=== PATIENT | male | born 1945 | race Caucasian/White ===

== ENCOUNTER 2016-04-21 06:48 | Emergency (ER) | payer OTHER ==
--- NOTE | 2016-04-21 07:03 | CPEKG ---
Heart Rate: 69 RR Interval: 870 P-R Interval: 164 QRSD Interval: 90 QT Interval: 384 QTC Interval: 412 P Leon: 3 QRS Leon: 61 T Wave Leon: 32 EKG Severity - OTHERWISE NORMAL ECG - EKG Impression: SINUS RHYTHM EKG Impression: VENTRICULAR PREMATURE COMPLEX EKG Impression: Similar to previous Electronically Signed By: Kevin Almazan 21-Apr-2016 07:05:19
[2016-04-21] MEDS ORDERED: MECLIZINE HCL 25 MG TAB PO ONE (07:12)
--- NOTE | 2016-04-21 07:18 | EDPHY ---
H & P Stated Complaint: vertigo and nausea Time Seen by Provider: 04/21/16 07:03 HPI/ROS: CHIEF COMPLAINT: Vertigo HISTORY OF PRESENT ILLNESS: Patient is a 70-year-old man with a history of hypertension and diabetes who comes to the emergency department complaining of vertigo. He states that he rolled over and his bed last night at 4:00 a.m. and had sudden vertigo. It resolved and he is able to go back to sleep. It happened again at 6:00 a.m. this morning when he was getting up. It is worsened by head movement or position. It does tend to resolve if he holds his head still. He states that now it is feeling much better. He did vomit once. He denies chest pain or shortness of breath. No abdominal pain. He has never had these symptoms before. REVIEW OF SYSTEMS: Constitutional: denies: chills, fever, recent illness, recent injury EENTM: denies: blurred vision, double vision, nose congestion Respiratory: denies: cough, shortness of breath Cardiac: denies: chest pain, irregular heart rate, lightheadedness, palpitations Gastrointestinal/Abdominal: denies: abdominal pain, diarrhea, blood streaked stools Genitourinary: denies: dysuria, frequency, hematuria, pain Musculoskeletal: denies: joint pain, muscle pain Skin: denies: lesions, rash, jaundice, bruising Neurological: Vertigo, denies: headache, numbness, paresthesia, tingling, weakness Hematologic/Lymphatic: denies: blood clots, easy bleeding, easy bruising Immunologic/allergic: denies: HIV/AIDS, transplant EXAM: GENERAL: Well-appearing, well-nourished and in no acute distress. HEAD: Atraumatic, normocephalic. EYES: Nystagmus primarily with looking to the right. Pupils equal round and reactive to light, extraocular movements intact, sclera anicteric, conjunctiva are normal. ENT: TMs normal, nares patent, oropharynx clear without exudates. Moist mucous membranes. NECK: Normal range of motion, supple without lymphadenopathy or JVD. LUNGS: Breath sounds clear to auscultation bilaterally and equal. No wheezes rales or rhonchi. HEART: Regular rate and rhythm without murmurs, rubs or gallops. ABDOMEN: Soft, nontender, normoactive bowel sounds. No guarding, no rebound. No masses appreciated. BACK: No CVA tenderness, no spinal tenderness, step-offs or deformities EXTREMITIES: Normal range of motion, no pitting or edema. No clubbing or cyanosis. NEUROLOGICAL: Cranial nerves II through XII grossly intact. Normal speech, normal gait. 5/5 strength, normal movement in all extremities, normal sensation , normal reflexes, normal cerebellar exam PSYCH: Normal mood, normal affect. SKIN: Warm, dry, normal turgor, no visible rashes or lesions. Source: Patient Exam Limitations: No limitations - Personal History Current Tetanus/Diphtheria Vaccine: Unsure Tetanus Vaccine Date: 07/2011 - Medical/Surgical History Hx Asthma: No Hx Chronic Respiratory Disease: No Hx Diabetes: Yes Hx Cardiac Disease: No Hx Renal Disease: No Hx Cirrhosis: No Hx Alcoholism: No Hx HIV/AIDS: No Hx Splenectomy or Spleen Trauma: No Other PMH: PMHx: PSHx: - Family History Significant Family History: No pertinent family hx - Social History Smoking Status: Never smoked Alcohol Use: Sober Drug Use: None Constitutional: Initial Vital Signs Temperature (C) 36.5 C 04/21/16 06:51 Heart Rate 72 04/21/16 06:51 Respiratory Rate 17 04/21/16 06:51 Blood Pressure 142/92 H 04/21/16 06:51 O2 Sat (%) 97 04/21/16 06:51 O2 Delivery Mode Room Air O2 (L/minute) 2 Allergies/Adverse Reactions: hydrocodone bitartrate [From Vicodin] Allergy (Intermediate, Verified 12/12/12 10:23) [place] very drowsy & warm Home Medications: Medication Instructions Recorded Atorvastatin Calcium [Lipitor 10 10 mg PO HS 12/06/12 mg (RX)] Januvia 100 mg PO DAILY 02/22/13 metFORMIN HCL [Glucophage] 500 mg PO BID 02/22/13 Farxiga 04/21/16 Meclizine HCl [Meclizine HCl 25 mg 25 mg PO BID #20 tab 04/21/16 (RX,OTC)] Ondansetron Odt [Zofran Odt 4 mg 4 mg PO Q4 PRN #20 tab 04/21/16 (RX)] Medical Decision Making - Diagnostics EKG Interpretation: An EKG obtained and was read and documented in trace view. Please see trace view for full reading and report. Sinus rhythm, PVC, similar to previous ED Course/Re-evaluation: 7:50 a.m. I placed the patient through the Bonnie maneuver. He vomited twice with head turning but his vertigo and nystagmus resolved after about a minute. He is now sitting up in bed feeling much better. We will continue to observe. 8:30 a.m. the patient feels fine when he sits still but when he turns his head or moves he becomes vertiginous and nauseous again. We will treat him with Zofran. He would prefer to go home and rest there. I will write him a prescription for meclizine and Zofran and a referral to ENT if his symptoms are not improving. Differential Diagnosis: Partial list of the Differential diagnosis considered include but were not limited to; BPV, CVA, TIA and although unlikely based on the history and physical exam, I also considered otitis media, otitis externa, tumor dissection , arrhythmia, acute coronary disease. I discussed these differential diagnoses and the plan with the patient as well as the usual and expected course. The patient understands that the diagnosis is provisional and that in medicine we are not always correct and that further workup is often warranted. Usual and customary warnings were given. All of the patient's questions were answered. The patient was instructed to return to the emergency department should the symptoms at all worsen or return, otherwise to followup with the physician as we discussed. - Data Points Medications Given: Discontinued Medications Meclizine HCl (Meclizine Hcl) 50 mg PO EDNOW ONE Stop: 04/21/16 07:13 Last Admin: 04/21/16 07:26 Dose: 50 mg Ondansetron HCl (Zofran) 4 mg IVP EDNOW ONE Stop: 04/21/16 08:20 Last Admin: 04/21/16 08:26 Dose: 4 mg Departure - Departure Disposition: Home, Routine, Self-Care Clinical Impression: Benign positional vertigo Qualifiers: Laterality: right Qualified Code(s): H81.11 - Benign paroxysmal vertigo, right ear Condition: Fair Instructions: Meclizine (By mouth), Ondansetron (By mouth), Benign Paroxysmal Positional Vertigo (ED) Referrals: Lisandra العراقي MD [Primary Care Provider] - As per Instructions Belle Oviedo MD [Medical Doctor] - As per Instructions Prescriptions: Meclizine HCl [Meclizine HCl 25 mg (RX,OTC)] 25 mg PO BID #20 tab Ondansetron Odt [Zofran Odt 4 mg (RX)] 4 mg PO Q4 PRN #20 tab PRN Reason: Nausea & Vomiting
[2016-04-21] MEDS ORDERED: ONDANSETRON 4 MG/2 ML VIAL IVP ONE (08:19)
[2016-04-21 08:42] VITALS: BP 119/70; PULSE 76; RESP 16; TEMP 97.5; O2SAT 93
== END 2016-04-21 08:42 | disposition home or self-care (01) ==
DX: H81.11 Benign paroxysmal vertigo, right ear (principal); E11.9 Type 2 diabetes mellitus without complications; Z79.4 Long term (current) use of insulin
CPT/HCPCS: 93005; 96374; 99284; J2405

== ENCOUNTER → 2017-12-19 | Outpatient (CLI) | payer OTHER | LOC: FCPNEURO 21:00 | PROVIDERS: ATTEND Psychiatry & Neurology Sleep Medicine | DX: G47.33 Obstructive sleep apnea (adult) (pediatric) (principal) ==

== ENCOUNTER → 2017-12-22 | Outpatient (CLI) | payer OTHER | LOC: FIMAGING 09:51 | PROVIDERS: ATTEND Internal Medicine | DX: H54.61 Unqualified visual loss, right eye, normal vision left eye (principal) | CPT/HCPCS: 82565-PO ==

== ENCOUNTER 2018-06-16 16:14 | Emergency (ER) | payer OTHER ==
--- NOTE | 2018-06-16 16:36 | EDPHY ---
H & P Stated Complaint: 15 sec intermittent pain above right eye, blurry right eye, x3 days Time Seen by Provider: 06/16/18 16:36 HPI/ROS: HPI CHIEF COMPLAINT: Intermittent right sided headache and visual disturbance HISTORY OF PRESENT ILLNESS: This is a 72-year-old male, he has a history of struck to sleep apnea, polycythemia, diabetes, obesity, presents to the emergency room with a right-sided headache. This is above his eye. Patient reports that over the last 3 days he has had intermittent short-acting right- sided headache that he describes as sharp stabbing rather severe. It is above his right eye. It is not behind his eye. He states he developed this headache 1st and then gets a visual disturbance which she describes blurry vision. He denies any loss of vision, denies floaters, denies blackness. He denies focal numbness or tingling or focal weakness. The headache lasted 15 sec and then resolves on its own and then his visual disturbance last longer. Up to a few hours. And then resolved on its own. He reports to me he has had this 3 times today, multiple times yesterday and a few x3 days ago. Past Medical History: Cataracts, sleep apnea, diabetes Past Surgical History: No recent surgery Social History: Denies drugs alcohol tobacco. Family History: Noncontributory ROS REVIEW OF SYSTEMS: 10 Systems were reviewed and negative with the exception of the elements mentioned in the history of present illness. Exam Constitutional triage nursing summary reviewed, vital signs reviewed, awake/ alert. Eyes normal conjunctivae and sclera, EOMI, PERRLA. Eye exam right eye, pupil equal round react to light, extra movements intact, globe is soft, visual menjivar intact, no loss of vision, anterior chamber normal, no hyphema, posterior eye exam without dilatation unremarkable no evidence of vitreous hemorrhage. HENT normal inspection, atraumatic, moist mucus membranes, no epistaxis, neck supple/ no meningismus, no raccoon eyes. Respiratory clear to auscultation bilaterally, normal breath sounds, no respiratory distress, no wheezing. Cardiovascular rate normal, regular rhythm, no murmur, no edema, distal pulses normal. Gastrointestinal soft, non-tender, no rebound, no guarding, normal bowel sounds, no distension, no pulsatile mass. Genitourinary no CVA tenderness. Musculoskeletal no midline vertebral tenderness, full range of motion, no calf swelling, no tenderness of extremities, no meningismus, good pulses, neurovascularly intact. Skin pink, warm, & dry, no rash, skin atraumatic. Neurologic awake, alert and oriented x 3, AAOx3, moves all 4 extremities equally, motor intact, sensory intact, CN II-XII intact, normal cerebellar, normal vision, normal speech. Psychiatric normal mood/affect. Heme/Lymph/Immune no lymphadenopathy. Differential Diagnosis: Includes but is not limited to in a particular order ocular migraine, intracranial bleed, stroke, tumor, glaucoma, saw stir Medical Decision Making: Plan for this patient IV establishment basic labs, CT scan head without contrast, gentle IV fluids, his headache and visual disturbance at this time has resolved. Will contact ophthalmology will check eye pressures. Re-evaluation: CT scan head without contrast called to me by Dr. Santiago negative. Visual acuity reviewed. 1906: Patient re-evaluated this time he is sitting up in bed laughing, with no headache or eye pain. No visual disturbance at this time. He is playing a car game with his . He denies any complaints at this time is feeling much better. Labs reviewed and CT scan reviewed. I will speak with Ophthalmology about further recommendations in close follow- up. I do recommend the patient gets close follow-up with Ophthalmology Monday. Additionally we discussed return precautions return emergency room if worsening headache, visual disturbance, not doing well he is comfortable this plan. Case was discussed with Dr. Dodd in detail. Discussed imaging results, lab work, clinical exam findings he would like to see the patient on Monday early head start teacher around 8:00 a.m. In his office. He will call him For follow-up appointment. Meanwhile over the weekend if he has any worsening symptoms to return emergency room. I did check patient's eye pressure with a Fred-Pen I got 13, 12, 13 of his right eye. No elevated pressures. Patient re-evaluated 1937 feels comfortable. Would like to go home. Return precautions discussed Source: Patient - Personal History Current Tetanus/Diphtheria Vaccine: Yes Current Tetanus Diphtheria and Acellular Pertussis (TDAP): Yes Tetanus Vaccine Date: 07/2011 - Medical/Surgical History Hx Asthma: No Hx Chronic Respiratory Disease: No Hx Diabetes: Yes Hx Cardiac Disease: No Hx Renal Disease: No Hx Cirrhosis: No Hx Alcoholism: No Hx HIV/AIDS: No Hx Splenectomy or Spleen Trauma: No Other PMH: type 2 diabetes, sleep apnea, polycythemia - Social History Smoking Status: Former smoker Constitutional: Initial Vital Signs Temperature (C) 36.8 C 06/16/18 16:14 Heart Rate 87 06/16/18 16:14 Respiratory Rate 16 06/16/18 16:14 Blood Pressure 147/82 H 06/16/18 16:14 O2 Sat (%) 94 06/16/18 16:14 O2 Delivery Mode Room Air Allergies/Adverse Reactions: hydrocodone bitartrate [From Vicodin] Allergy (Intermediate, Verified 06/16/18 16:21) [place] very drowsy & warm Home Medications: Medication Instructions Recorded Atorvastatin Calcium [Lipitor 10 10 mg PO HS 12/06/12 mg (RX)] Januvia 100 mg PO DAILY 02/22/13 metFORMIN HCL [Glucophage] 500 mg PO BID 02/22/13 Farxiga 04/21/16 Meclizine HCl [Meclizine HCl 25 mg 25 mg PO BID #20 tab 04/21/16 (RX,OTC)] Ondansetron Odt [Zofran Odt 4 mg 4 mg PO Q4 PRN #20 tab 04/21/16 (RX)] Medical Decision Making - Diagnostics Imaging Results: Imaging Impressions Head CT 06/16/18 16:45 Impression: 1. Negative. No acute intracranial hemorrhage, subdural hematoma, or explanation for right-sided headache. 2. Minimal atrophy and minimal periventricular frontal white matter disease are unchanged. Findings discussed with Emergency Department physician, Otis Kunz M.D., on June 16, 2018 at 1755. - Data Points Laboratory Results: Laboratory Results 06/16/18 17:30 06/16/18 17:30 06/16/18 06/16/18 17:30 17:30 WBC 10.34 10^3/uL H 10^3/uL (3.80-9.50) RBC 6.24 10^6/uL 10^6/uL (4.40-6.38) Hgb 16.5 g/dL g/dL (13.7-17.5) Hct 52.8 % H % (40.0-51.0) MCV 84.6 fL fL (81.5-99.8) MCH 26.4 pg L pg (27.9-34.1) MCHC 31.3 g/dL L g/dL (32.4-36.7) RDW 15.7 % H % (11.5-15.2) Plt Count 317 10^3/uL 10^3/uL (150-400) MPV 10.0 fL fL (8.7-11.7) Neut % (Auto) 66.3 % % (39.3-74.2) Lymph % (Auto) 19.5 % % (15.0-45.0) [place] % (Auto) 9.1 % % (4.5-13.0) Eos % (Auto) 4.2 % % (0.6-7.6) Baso % (Auto) 0.6 % % (0.3-1.7) Nucleat RBC Rel Count 0.0 % % (0.0-0.2) Absolute Neuts (auto) 6.86 10^3/uL H 10^3/uL (1.70-6.50) Absolute Lymphs (auto) 2.02 10^3/uL 10^3/uL (1.00-3.00) Absolute Monos (auto) 0.94 10^3/uL H 10^3/uL (0.30-0.80) Absolute Eos (auto) 0.43 10^3/uL H 10^3/uL (0.03-0.40) Absolute Basos (auto) 0.06 10^3/uL 10^3/uL (0.02-0.10) Absolute Nucleated RBC 0.00 10^3/uL 10^3/uL (0-0.01) Immature Gran % 0.3 % % (0.0-1.1) Immature Gran # 0.03 10^3/uL 10^3/uL (0.00-0.10) Sodium 142 mEq/L mEq/L (135-145) Potassium 4.9 mEq/L mEq/L (3.5-5.2) Chloride 108 mEq/L mEq/L (97-110) Carbon Dioxide 27 mEq/l mEq/l (22-31) Anion Gap 7 mEq/L mEq/L (6-14) BUN 21 mg/dL mg/dL (7-23) Creatinine 1.1 mg/dL mg/dL (0.7-1.3) Estimated GFR > 60 Glucose 134 mg/dL H mg/dL (70-100) Calcium 9.7 mg/dL mg/dL (8.5-10.4) Medications Given: Discontinued Medications Sodium Chloride (Ns) 1,000 mls @ 0 mls/hr IV ONCE ONE; Wide Open PRN Reason: Protocol Stop: 06/16/18 16:46 Last Admin: 06/16/18 17:20 Dose: 1,000 mls Departure - Departure Disposition: Home, Routine, Self-Care Clinical Impression: Ocular migraine Condition: Fair Instructions: Ocular Migraine (ED) Additional Instructions: 1. Return to the emergency room if he develops worsening pain headache fever vomiting 2. Follow up with Ophthalmology they will call you tomorrow for follow-up appointment 3. Return emergency room if worse Referrals: NONE *PRIMARY CARE P,. [Primary Care Provider] - As per Instructions Barry Dodd MD [Medical Doctor] - As per Instructions
[2018-06-16] MEDS ORDERED: NS 1,000 ML IV ONE (16:45)
[2018-06-16 17:48] LABS: PLATELET COUNT 317 10^3/uL (150-400)
[2018-06-16 19:52] VITALS: BP 120/70
== END 2018-06-16 19:52 | disposition home or self-care (01) ==
DX: G43.909 Migraine, unspecified, not intractable, without status migrainosus (principal); E86.9 Volume depletion, unspecified; E11.9 Type 2 diabetes mellitus without complications; G47.30 Sleep apnea, unspecified

== ENCOUNTER 2018-07-25 18:23 | Emergency (ER) | payer OTHER ==
--- NOTE | 2018-07-25 18:52 | EDPHY ---
H & P Stated Complaint: Low abdo and penile pain, sent by PCP for possible blood in urine. Time Seen by Provider: 07/25/18 18:38 HPI/ROS: CHIEF COMPLAINT: Bilateral testicular discomfort, hematuria HISTORY OF PRESENT ILLNESS: The patient presents the ED with worsening bilateral testicular discomfort for the past several weeks. The patient has now noticed some scant hematuria. The patient does have urinary frequency. He denies fever or flank pain. He does complain of some pain at the base of his penis. The patient denies any abdominal pain, flank pain, vomiting or fever. The patient feels that he is able to empty his bladder thoroughly. REVIEW OF SYSTEMS: A comprehensive 10 point review of systems is otherwise negative aside from elements mentioned in the history of present illness. Source: Patient Exam Limitations: No limitations - Personal History Current Tetanus Diphtheria and Acellular Pertussis (TDAP): Yes Tetanus Vaccine Date: 07/2011 - Medical/Surgical History Hx Asthma: No Hx Chronic Respiratory Disease: No Hx Diabetes: Yes Hx Cardiac Disease: No Hx Renal Disease: No Hx Cirrhosis: No Hx Alcoholism: No Hx HIV/AIDS: No Hx Splenectomy or Spleen Trauma: No Other PMH: type 2 diabetes, sleep apnea, polycythemia - Social History Smoking Status: Former smoker - Physical Exam Exam: General Appearance: Alert, no distress Eyes: Pupils equal and round no pallor or injection ENT, Mouth: Mucous membranes moist Respiratory: There are no retractions, lungs are clear to auscultation Cardiovascular: Regular rate and rhythm Gastrointestinal: Abdomen is soft and nontender, no masses, bowel sounds normal Genitourinary: Mild bilateral testicular tenderness noted, normal testicular lie bilaterally, no Nomi's gangrene, no perineal erythema Neurological: A&O, normal motor function, normal sensory exam, normal cranial nerves Skin: Warm and dry, no rashes Musculoskeletal: Neck is supple nontender Extremities: symmetrical, full range of motion Constitutional: Initial Vital Signs Temperature (C) 36.9 C 07/25/18 18:27 Heart Rate 105 H 07/25/18 18:27 Respiratory Rate 18 07/25/18 18:27 Blood Pressure 164/94 H 07/25/18 18:27 O2 Sat (%) 96 07/25/18 18:27 Allergies/Adverse Reactions: hydrocodone bitartrate [From Vicodin] Allergy (Intermediate, Verified 06/16/18 16:21) [place] very drowsy & warm Home Medications: Medication Instructions Recorded Atorvastatin Calcium [Lipitor 10 10 mg PO HS 12/06/12 mg (RX)] Januvia 100 mg PO DAILY 02/22/13 metFORMIN HCL [Glucophage] 500 mg PO BID 02/22/13 Farxiga 04/21/16 Meclizine HCl [Meclizine HCl 25 mg 25 mg PO BID #20 tab 04/21/16 (RX,OTC)] Ondansetron Odt [Zofran Odt 4 mg 4 mg PO Q4 PRN #20 tab 04/21/16 (RX)] Tamsulosin HCl [Flomax] 0.4 mg PO DAILY PRN #20 cap 07/25/18 Medical Decision Making ED Course/Re-evaluation: The patient presents to the ED with complaints of testicular pain, lower abdominal pain and penile discomfort. The patient has been experiencing hematuria. The patient is noted to have a benign abdominal examination. He has no CVA tenderness. The patient provided a urine sample which demonstrates only hematuria without pyuria. Bladder scan demonstrates a postvoid residual of 700 mL. A Shearer catheter was ordered. Screening laboratory studies have been sent at 8: 00 p.m.. 700 mL of urine was removed. I reassessed the patient at 9:00 p.m.. He has no evidence of renal failure. He has no pyuria. The patient will be started on Flomax. He is given a leg bag. He is referred to our on-call urologist. Patient is advised to return to the ED for any increasing pain, fever or vomiting. A urine culture has been sent. Differential Diagnosis: Differential diagnosis considered includes renal failure, urinary retention, cystitis, pyelonephritis, BPH - Data Points Laboratory Results: Laboratory Results 07/25/18 20:02 07/25/18 20:02 07/25/18 07/25/18 07/25/18 20:02 20:02 19:07 WBC 12.76 10^3/uL H 10^3/uL (3.80-9.50) RBC 6.74 10^6/uL H 10^6/uL (4.40-6.38) Hgb 17.7 g/dL H g/dL (13.7-17.5) Hct 55.0 % H % (40.0-51.0) MCV 81.6 fL fL (81.5-99.8) MCH 26.3 pg L pg (27.9-34.1) MCHC 32.2 g/dL L g/dL (32.4-36.7) RDW 17.2 % H % (11.5-15.2) Plt Count 343 10^3/uL 10^3/uL (150-400) MPV 10.4 fL fL (8.7-11.7) Neut % (Auto) 72.6 % % (39.3-74.2) Lymph % (Auto) 14.6 % L % (15.0-45.0) [place] % (Auto) 8.9 % % (4.5-13.0) Eos % (Auto) 3.0 % % (0.6-7.6) Baso % (Auto) 0.5 % % (0.3-1.7) Nucleat RBC Rel Count 0.0 % % (0.0-0.2) Absolute Neuts (auto) 9.27 10^3/uL H 10^3/uL (1.70-6.50) Absolute Lymphs (auto) 1.86 10^3/uL 10^3/uL (1.00-3.00) Absolute Monos (auto) 1.13 10^3/uL H 10^3/uL (0.30-0.80) Absolute Eos (auto) 0.38 10^3/uL 10^3/uL (0.03-0.40) Absolute Basos (auto) 0.07 10^3/uL 10^3/uL (0.02-0.10) Absolute Nucleated RBC 0.00 10^3/uL 10^3/uL (0-0.01) Immature Gran % 0.4 % % (0.0-1.1) Immature Gran # 0.05 10^3/uL 10^3/uL (0.00-0.10) Sodium 139 mEq/L mEq/L (135-145) Potassium 4.8 mEq/L mEq/L (3.5-5.2) Chloride 104 mEq/L mEq/L (97-110) Carbon Dioxide 22 mEq/l mEq/l (22-31) Anion Gap 13 mEq/L mEq/L (6-14) BUN 29 mg/dL H mg/dL (7-23) Creatinine 1.3 mg/dL mg/dL (0.7-1.3) Estimated GFR 55 Glucose 190 mg/dL H mg/dL (70-100) Calcium 10.0 mg/dL mg/dL (8.5-10.4) Urine RBC 50-182 /hpf H /hpf (0-3) Urine WBC 1-3 /hpf /hpf (0-3) Ur Epithelial Cells NONE SEEN /lpf /lpf (NONE-1+) Urine Mucus TRACE /lpf /lpf (NONE-1+) Departure - Departure Disposition: Home, Routine, Self-Care Clinical Impression: Urinary retention Condition: Good Instructions: Urinary Retention in Men (ED), Enlarged Prostate (BPH) (ED) Additional Instructions: 1. Please wear Shearer catheter until seen in follow-up by urology. 2. Please begin Flomax as prescribed. 3. Return to the ED for markedly worsening symptoms, increasing pain, vomiting or other concerns. 4. Please contact the emergency department in 2 days at [phone] to check the results of your urine culture. 5. Please follow-up with the on-call urologist you have been referred to or the new urologist at [facility]. Referrals: Joseluis Campbell MD [Medical Doctor] - As per Instructions Miryam Gilbert MD [Medical Doctor] - As per Instructions Prescriptions: Tamsulosin HCl [Flomax] 0.4 mg PO DAILY PRN #20 cap PRN Reason: for pain
[2018-07-25 20:42] LABS: PLATELET COUNT 343 10^3/uL (150-400)
[2018-07-25 21:05] VITALS: BP 157/75
== END 2018-07-25 21:03 | disposition home or self-care (01) ==
DX: R33.9 Retention of urine, unspecified (principal); R31.9 Hematuria, unspecified; E11.9 Type 2 diabetes mellitus without complications; G47.30 Sleep apnea, unspecified; Z87.891 Personal history of nicotine dependence